=== PATIENT | female | born 1970 | race African-American/Black ===

== ENCOUNTER 2016-09-24 09:47 | Emergency (ER) | payer OTHER ==
[~2016-09-24] VITALS: Ht 151.1 cm; Wt 67.9 kg
[~2016-09-24 09:47] MED LIST: ASPI81TA28 PO; HYDR25TA4 PO
[2016-09-24 09:52] VITALS: TEMP 36.4; Ht 151.1 cm; Wt 67.9 kg
[2016-09-24] MEDS ORDERED: SODIUM CHLORIDE 0.9% 500ML 500 ML IV STA (10:43)
[2016-09-24] MEDS ORDERED: ALBUT/IPRATROP 3MG/0.5MG NEB 3 ML VIAL INH STA (10:43)
[2016-09-24] MEDS ORDERED: HYDROCODONE/HOMATROPINE SYRUP 5MG/1.5MG 5ML UDP PO STA (10:43)
[2016-09-24 10:56] VITALS: O2SAT 98
--- NOTE | 2016-09-24 11:00 | EMERGENCY ROOM VISIT NOTE ---
History Report prepared by Anita: Kait Caicedo Under the Supervision of: Dr. Marcial Mon M.D. First contact with patient: 10:20 Chief Complaint: HYPERTENSION Stated Complaint: CHEST PAINS, HYPERTENSION History of Present Illness The patient is a 45 year old female who presents to the Emergency Room with complaints of persistent hypertension that began prior to arrival. She currently rates her discomfort as an 8/10 in severity. The patient states that she came up to [place] to help solve a housing arrangement for her daughter. She states that while at the on campus housing department, she became agitated while talking with the office and notes that her blood pressure was high. The patient states that she started feeling lightheaded and began coughing. She states that she tried using her inhaler that she was prescribed for bronchitis. The patient notes that she took one dose of amlodipine. She states that she read her blood pressure at 200 mmHg systolically. Source of History: patient Onset: prior to arrival Position: other (global) Symptom Intensity: 8/10 Quality: other (hypertension) Timing: other (persistent) Associated Symptoms: + cough Note: Associated Symptoms: lightheaded Review of Systems See HPI for pertinent positives & negatives. A total of 10 systems reviewed and were otherwise negative. Past Medical & Surgical Medical Problems: (1) Hypertension (2) Stroke Surgical Problems: (1) H/O brain surgery (2) H/O foot surgery Family History Gallbladder disease Hypertension Kidney disease Kidney stones Lung disease Seizures Social History Smoking Status: Never Smoker Alcohol Use: none Housing Status: lives with family Occupation Status: unemployed Current/Historical Medications Scheduled Aspirin (Aspirin Ec), 81 MG PO DAILY Potassium Chloride (Potassium Chloride Er), 4 CAP PO Q4 Miscellaneous Medications Hydrochlorothiazide (Hctz), Unknown Dose PO Allergies Coded Allergies: Hydromorphone (Verified Allergy, Unknown, RASH, 05/23/15) Iodinated Diagnostic Agents (Verified Allergy, Unknown, ANAPHYLAXIS, 05/23) Reports allergy to both iv and oral contrast. Penicillins (Verified Allergy, Unknown, RASH, 05/23/15) Tetanus Toxoid (Verified Allergy, Unknown, RASH, 05/23/15) Physical Exam Vital Signs Date Time Temp Pulse Resp B/P Pulse Ox O2 Delivery O2 Flow Rate FiO2 09/24/16 12:35 77 131/93 96 Room Air 09/24/16 11:06 75 20 111/76 96 Room Air 09/24/16 10:58 71 09/24/16 10:56 98 Room Air 09/24/16 09:52 36.4 98 18 139/86 95 Room Air Physical Exam GENERAL: Patient is a healthy-appearing well-nourished HEAD: Normocephalic atraumatic EYES: Ocular movements intact pupils equal and react to light OROPHARYNX mucous membranes are moist no exudates present no erythema or edema present NECK: Supple no nuchal rigidity CHEST: Good equal expansion LUNGS: Clear and equal to auscultation CARDIAC: Normal S1 and S2 ABDOMEN: Soft nontender no guarding BACK: No CVA tenderness EXTREMITIES: No pain upon palpation normal muscle strength in all groups no clubbing cyanosis or edema NEURO: Patient is following commands is answering questions appropriately. Alert and oriented x3 Cranial Nerves 2-12 grossly intact Medical Decision & Procedures Laboratory Results 09/24/16 10:50 Red Blood Count 4.12, Mean Corpuscular Volume 84.5, Mean Corpuscular Hemoglobin 28.6, Mean Corpuscular Hemoglobin Concent 33.9, Mean Platelet Volume 8.9, Neutrophils (%) (Auto) 54.3, Lymphocytes (%) (Auto) 34.6, Monocytes (%) (Auto) 10.4, Eosinophils (%) (Auto) 0.4, Basophils (%) (Auto) 0.1, Neutrophils # (Auto ) 5.58, Lymphocytes # (Auto) 3.56, Monocytes # (Auto) 1.07, Eosinophils # (Auto ) 0.04, Basophils # (Auto) 0.01 09/24/16 10:50 Test 09/24/16 10:50 09/24/16 11:00 White Blood Count 10.28 K/uL (4.8-10.8) Red Blood Count 4.12 M/uL (4.2-5.4) Hemoglobin 11.8 g/dL (12.0-16.0) Hematocrit 34.8 % (37-47) Mean Corpuscular Volume 84.5 fL (80-100) Mean Corpuscular Hemoglobin 28.6 pg (25-34) Mean Corpuscular Hemoglobin Concent 33.9 g/dl (32-36) Platelet Count 365 K/uL (130-400) Mean Platelet Volume 8.9 fL (7.4-10.4) Neutrophils (%) (Auto) 54.3 % Lymphocytes (%) (Auto) 34.6 % Monocytes (%) (Auto) 10.4 % Eosinophils (%) (Auto) 0.4 % Basophils (%) (Auto) 0.1 % Neutrophils # (Auto) 5.58 K/uL (1.4-6.5) Lymphocytes # (Auto) 3.56 K/uL (1.2-3.4) Monocytes # (Auto) 1.07 K/uL (0.11-0.59) Eosinophils # (Auto) 0.04 K/uL (0-0.5) Basophils # (Auto) 0.01 K/uL (0-0.2) RDW Standard Deviation 41.6 fL (36.4-46.3) RDW Coefficient of Variation 13.5 % (11.5-14.5) Immature Granulocyte % (Auto) 0.2 % Immature Granulocyte # (Auto) 0.02 K/uL (0.00-0.02) Prothrombin Time 10.5 SECONDS (9.0-12.0) Prothromb Time International Ratio 1.0 (0.9-1.1) Activated Partial Thromboplast Time 23.1 SECONDS (21.0-31.0) Partial Thromboplastin Ratio 0.9 Anion Gap 8.0 mmol/L (3-11) Est Creatinine Clear Calc Drug Dose 72.6 ml/min Estimated GFR () 98.7 Estimated GFR (Non- 85.2 BUN/Creatinine Ratio 21.1 (10-20) Calcium Level 8.5 mg/dl (8.5-10.1) Total Bilirubin 0.4 mg/dl (0.2-1) Direct Bilirubin < 0.1 mg/dl (0-0.2) Aspartate Amino Transf (AST/SGOT) 24 U/L (15-37) Alanine Aminotransferase (ALT/SGPT) 27 U/L (12-78) Alkaline Phosphatase 54 U/L (45-117) Total Protein 6.7 gm/dl (6.4-8.2) Albumin 3.3 gm/dl (3.4-5.0) Lipase 177 U/L (73-393) Thyroid Stimulating Hormone (TSH) 2.010 uIu/ml (0.300-4.500) Urine Color YELLOW Urine Appearance CLOUDY (CLEAR) Urine pH 6.0 (4.5-7.5) Urine Specific [place] 1.020 (1.000-1.030) Urine Protein NEG (NEG) Urine Glucose (UA) NEG (NEG) Urine Ketones NEG (NEG) Urine Occult Blood 3+ (NEG) Urine Nitrite NEG (NEG) Urine Bilirubin NEG (NEG) Urine Urobilinogen NEG (NEG) Urine Leukocyte Esterase MODERATE (NEG) Urine WBC (Auto) 1-5 /hpf (0-5) Urine RBC (Auto) 5-10 /hpf (0-4) Urine Hyaline Casts (Auto) 1-5 /lpf (0-5) Urine Epithelial Cells (Auto) >30 /lpf (0-5) Urine Bacteria (Auto) 1+ (NEG) Urine Crystals CALCIUM OXALATE (NONE Urine Mucus PRESENT (NONE PRSENT) Urine Yeast (Auto) (NONE PRSENT) Labs reviewed by ED physician. Medications Administered Medications (Trade) Dose Ordered Sig/Ema Route Start Time Stop Time Status Last Admin Dose Admin Albuterol/ Ipratropium (Duoneb) 3 ml NOW STAT INH 09/24/16 10:43 09/24/16 10:45 DC 09/24/16 11:34 3 ML ECG Indication: other (hypertension) Rate (beats per minute): 67 Rhythm: normal sinus Findings: no acute ischemic change, no ectopy ED Course 1028: Past medical records reviewed. The patient was evaluated in room B3B. A complete history and physical examination was performed. 1043: Ordered Duoneb 3 ml INH. 1220: I reevaluated the patient and she is resting comfortably. I discussed the exam findings with her and I discussed the treatment plan. She verbalized complete understanding and agreement. She is ready to go home. Medical Decision Differential diagnosis: Etiologies such as benign hypertension, hypertensive emergency, cardiovascular pathology, pheochromocytoma, electrolyte abnormality, renal disease, endorgan damage, as well as others were entertained. This is a 45-year-old female who presents emergency department complaining of high blood pressure. I did go through the patient's blood pressure digital readings and at no time waited the digital readings above 170. In addition the patient is not hypertensive here in the emergency department. Based on these findings I felt that the patient did not be need to be treated. She was given a breathing treatment for her cough in the emergency department. She has normal laboratory work and I feel can be safely discharged home with the exception of her potassium. I recommended that the patient's potassium be repleted however the patient wished to leave with this could happen. The patient has demonstrated no significant defect in the decision-making capacity to make choices. The encounter had a good level of communication with language the patient can easily understand. I feel trust was present and conveyed that our action/intentions were the best interest of the patient. The patient was given all relevant information and reiterated the explained risks and benefits. The patient explained the reasoning for refusing treatment clearly. The patient possesses and expresses a set of values and goals, the ability to communicate and understand, and an ability to reason and deliberate. Despite acting emphatically, attentively and with the utmost patient's the patient declined further treatment. I offered options, negotiated, and explored every reasonable choice. I must respect the patient's autonomy and that they feel that their choices are best for them despite the associated risks of leaving without completing the evaluation. The patient was informed about the findings as listed above. All questions were answered and he was pleased with the treatment. Return instructions were outlined and the patient was discharged in stable condition. The patient's were given prescription for her potassium and will follow-up with her primary care physician. Impression Primary Impression: Hypertension Additional Impression: Hypokalemia Scribe Attestation The scribe's documentation has been prepared under my direction and personally reviewed by me in its entirety. I confirm that the note above accurately reflects all work, treatment, procedures, and medical decision making performed by me. Departure Information Dispostion Home / Self-Care Prescriptions Potassium Chloride (POTASSIUM CHLORIDE ER) 10 Meq Cap 4 CAP PO Q4, #12 CAP 1 Refill Prov: Marcial Mon MD 09/24/16 Referrals No Doctor, Assigned (PCP) Forms HOME CARE DOCUMENTATION FORM, IMPORTANT VISIT INFORMATION, WORK / SCHOOL INSTRUCTIONS Patient Instructions Hypokalemia [place], My [facility] Additional Instructions You have been examined and treated today on an emergency basis only. This is not a substitute for, or an effort to provide, complete comprehensive medical care. It is impossible to recognize and treat all injuries or illnesses in a single emergency department visit. It is therefore important that you follow up closely with your PCP. Call as soon as possible for an appointment. Thank you for your time and consideration. I look forward to speaking with you again soon. Please don't hesitate to call us if you have any questions. Problem Qualifiers Primary Impression: Hypertension Hypertension type: unspecified secondary hypertension Qualified Codes: I15.9 - Secondary hypertension, unspecified
[2016-09-24 11:06] LABS: BASO % 0.1 %; BASO ABS # 0.01 K/uL (0-0.2); COMPLETE YES; EOS % 0.4 %; HEMATOCRIT 34.8 % (37-47); IG% 0.2 %; LYMPH % 34.6 %; LYMPH ABS # 3.56 K/uL (1.2-3.4); MEAN CELL VOLUME 84.5 fL (80-100); MEAN CORPUSCULAR HEMOGLOBIN 28.6 pg (25-34); MEAN CORPUSCULAR HGB CONC 33.9 g/dl (32-36); MEAN PLATELET VOLUME 8.9 fL (7.4-10.4); MONO % 10.4 %; NEUT % 54.3 %; PLATELET COUNT 365 K/uL (130-400); RED BLOOD COUNT 4.12 M/uL (4.2-5.4); WHITE BLOOD COUNT 10.28 K/uL (4.8-10.8)
[2016-09-24 11:23] LABS: PARTIAL THROMBOPLASTIN RATIO 0.9; PROTHROMBIN TIME (PATIENT) 10.5 SECONDS (9.0-12.0)
[2016-09-24 11:38] LABS: ALT/SGPT 27 U/L (12-78); BLOOD UREA NITROGEN 18 mg/dl (7-18); BUN/CREATININE RATIO 21.1 (10-20); CALCIUM 8.5 mg/dl (8.5-10.1); CARBON DIOXIDE 28 mmol/L (21-32); CHLORIDE 101 mmol/L (98-107); CREATININE 0.83 mg/dl (0.60-1.20); GLUCOSE 93 mg/dl (70-99); POTASSIUM 2.4 mmol/L (3.5-5.1); SODIUM 137 mmol/L (136-145)
[2016-09-24 11:39] LABS: ALKALINE PHOSPHATASE 54 U/L (45-117); AST/SGOT 24 U/L (15-37)
[2016-09-24 11:52] LABS: URINE APPEARANCE CLOUDY (CLEAR); URINE BILIRUBIN NEG (NEG); URINE COLOR YELLOW; URINE EPITHELIAL CELL AUTO >30 /lpf (0-5); URINE NITRITE NEG (NEG); UROBILINOGEN NEG (NEG)
[2016-09-24 11:59] LABS: MANUAL MICROSCOPIC REQUIRED? NO; REVIEW REQ? YES
[2016-09-24 12:09] LABS: URINE MUCUS PRESENT (NONE PRSENT)
[2016-09-24] MEDS ORDERED: POTA1CAP2 PO (12:23)
[2016-09-24 12:35] VITALS: BP 131/93; PULSE 77; O2SAT 96
== END 2016-09-24 13:00 | disposition home or self-care (01) ==
LOC: C.EDB 09:50
DX: I15.9 Secondary hypertension, unspecified (principal); E87.6 Hypokalemia; R05 Cough; R42 Dizziness and giddiness; Z86.73 Personal history of transient ischemic attack (TIA), and cerebral infarction without residual deficits; Z82.49 Family history of ischemic heart disease and other diseases of the circulatory system; Z84.1 Family history of disorders of kidney and ureter; Z79.82 Long term (current) use of aspirin

== ENCOUNTER 2017-12-04 03:19 | Emergency (ER) | payer OTHER ==
[~2017-12-04] VITALS: Ht 149.9 cm; Wt 73.6 kg
[~2017-12-04 03:19] MED LIST changes: +POTA1CAP2 PO
[2017-12-04 03:26] VITALS: TEMP 36.5
[2017-12-04] MEDS ORDERED: LORAZEPAM 2 MG/ML 1 ML VIAL IV STA (03:33)
[2017-12-04] MEDS ORDERED: AMLO-110 PO (03:44)
[2017-12-04] MEDS ORDERED: LORAZEPAM 1 MG TAB SL STA (03:56)
[2017-12-04 04:03] VITALS: Ht 149.9 cm; Wt 73.6 kg
[2017-12-04 04:08] VITALS: O2SAT 98
[2017-12-04 04:28] LABS: BASO % 0.7 %; BASO ABS # 0.04 K/uL (0-0.2); EOS % 0.5 %; EOS ABS # 0.03 K/uL (0-0.5); HEMATOCRIT 36.8 % (37-47); HEMOGLOBIN 12.4 g/dL (12.0-16.0); IG# 0.01 K/uL (0.00-0.02); LYMPH % 21.3 %; LYMPH ABS # 1.31 K/uL (1.2-3.4); MEAN CELL VOLUME 85.8 fL (80-100); MEAN CORPUSCULAR HEMOGLOBIN 28.9 pg (25-34); MEAN CORPUSCULAR HGB CONC 33.7 g/dl (32-36); MEAN PLATELET VOLUME 8.8 fL (7.4-10.4); MONO % 9.4 %; MONO ABS # 0.58 K/uL (0.11-0.59); NEUT % 67.9 %; NEUT ABS # 4.17 K/uL (1.4-6.5); PLATELET COUNT 336 K/uL (130-400); RED CELL DISTRIBUTION WIDTH CV 13.7 % (11.5-14.5); RED CELL DISTRIBUTION WIDTH SD 42.3 fL (36.4-46.3); WHITE BLOOD COUNT 6.14 K/uL (4.8-10.8)
[2017-12-04 04:47] LABS: ALBUMIN 3.6 gm/dl (3.4-5.0); ALT/SGPT 28 U/L (12-78); AST/SGOT 24 U/L (15-37); BLOOD UREA NITROGEN 9 mg/dl (7-18); CALCIUM 8.5 mg/dl (8.5-10.1); CARBON DIOXIDE 22 mmol/L (21-32); GLUCOSE 127 mg/dl (70-99); POTASSIUM 3.1 mmol/L (3.5-5.1); SODIUM 139 mmol/L (136-145)
[2017-12-04] MEDS ORDERED: POTASSIUM CHLORIDE 10 MEQ TABCR PO STA (04:54)
[2017-12-04 04:58] LABS: ALKALINE PHOSPHATASE 73 U/L (45-117); TOTAL PROTEIN 7.6 gm/dl (6.4-8.2)
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
[2017-12-04 06:03] VITALS: BP 151/110; PULSE 85; O2SAT 96
--- NOTE | 2017-12-04 06:03 | DIAGNOSTIC IMAGING REPORT ---
HEAD WITHOUT CONTRAST (CT) CLINICAL HISTORY: 46 years-old Female with MCCOY, HTN. Acute headache with hypertension. TECHNIQUE: Multiple axial CT images of the head were obtained without contrast. A dose lowering technique was utilized adhering to the principles of ALARA. CT DOSE: 537.48 mGy.cm COMPARISON: None. FINDINGS: No acute intracranial hemorrhage, midline shift, intracranial mass, hydrocephalus, territorial ischemia or abnormal extra-axial collection. Artifact from aneurysm coils within the distribution of the right A2 segment anterior cerebral artery in a parafalcine location. The calvarium is intact. The paranasal sinuses, mastoid air cells, and middle ear cavities are clear. IMPRESSION: No acute intracranial abnormality. The above report was generated using voice recognition software. It may contain grammatical, syntax or spelling errors. Electronically signed by: Justo Pavon M.D. 12/04/2017 6:02 AM Dictated Date/Time: 12/04/2017 5:59 AM
== END 2017-12-04 06:03 | disposition home or self-care (01) ==
LOC: C.EDB 03:20
DX: I10 Essential (primary) hypertension (principal); E87.6 Hypokalemia; R73.9 Hyperglycemia, unspecified; R51 Headache; Z86.73 Personal history of transient ischemic attack (TIA), and cerebral infarction without residual deficits; Z79.82 Long term (current) use of aspirin; Z82.49 Family history of ischemic heart disease and other diseases of the circulatory system